=== PATIENT | male | born 1965 | race Caucasian/White ===

== ENCOUNTER 2022-09-29 13:50 | Outpatient (RCR) | payer MEDICARE, BC, SELFPAY ==
--- NOTE | 2022-09-29 14:32 | PTOPEVAL1 ---
Assessment and note entered by Shayne Hsu Evaluation Information Assessment Status Evaluation Diagnosis spinal stenosis, low back pain Onset 12/18/21 Subjective Information Pt. reports long hx of back pain. He had initial surgery in 2011. He was doing well until about 2019. He reports that he experienced fluctuating back pain from 2019 to December of 2021. He reports back pain became intense prior to surgery, but he is doing better. He reports that his main complication is difficulty with long periods of standing and increasing pain after 1 hour. 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 He report that back pain will wake him frequently through the night. He states that that pain remains localized to the low back and does not have any current symptoms into his legs. He reports that he has taken hydrocodone for several years 2-3x/day. He reports that his goal for therapy is to be able to spend 3-4 hours in standing to do work in his garage and enguage in more social activities with his . Reported Pain Level Pain Score 1: Self Report Assessment PT Clinical Summary Pt. is a 57 year old male who enters the clinic with low back pain. He presents with core and proximal l.e. weakness, impaired postural awareness, impaired flexiblity, and pain on this date. Continued skilled PT is indicated in order to improve these areas to allow the pt. improved comfort with standing activities. Plan of Care Interventions Electrical Stimulation,Hot Pack/Cold Pack,Manual Therapy,Patient/Caregiver Educati,Therapeutic Activities,Therapeutic Exercise,Self-Care/Home Management PT Services Indicated Yes Treatment Frequency and 3x/week x 12 visits Duration These treatments will address the objective and functional deficits as defined above. The patient will be advanced safely and appropriately in order for the patient to progress towards his/her prior level of function. Additional exercises will be introduced and as well as a comprehensive home exercise program upon discharge, if needed, ?to ensure carryover of functional gains achieved in the clinic. This treatment plan has been reviewed and agreement upon by the patient.
--- NOTE | 2022-09-29 14:38 | PTOPEVAL1 ---
Assessment and note entered by Shayne Hsu Evaluation Information Assessment Status Evaluation Diagnosis spinal stenosis, low back pain Onset 12/18/21 Subjective Information Pt. reports long hx of back pain. He had initial surgery in 2011. He was doing well until about 2019. He reports that he experienced fluctuating back pain from 2019 to December of 2021. He reports back pain became intense prior to surgery, but he is doing better. He reports that his main complication is difficulty with long periods of standing and increasing pain after 1 hour. 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 He report that back pain will wake him frequently through the night. He states that that pain remains localized to the low back and does not have any current symptoms into his legs. He reports that he has taken hydrocodone for several years 2-3x/day. He reports that his goal for therapy is to be able to spend 3-4 hours in standing to do work in his garage and enguage in more social activities with his . Reported Pain Level Pain Score 1: Self Report Assessment PT Clinical Summary Pt. is a 57 year old male who enters the clinic with low back pain. He presents with core and proximal l.e. weakness, impaired postural awareness, impaired flexiblity, and pain on this date. Continued skilled PT is indicated in order to improve these areas to allow the pt. improved comfort with standing activities. Plan of Care Interventions Electrical Stimulation,Hot Pack/Cold Pack,Manual Therapy,Patient/Caregiver Educati,Therapeutic Activities,Therapeutic Exercise,Self-Care/Home Management PT Services Indicated Yes Treatment Frequency and 3x/week x 12 visits Duration These treatments will address the objective and functional deficits as defined above. The patient will be advanced safely and appropriately in order for the patient to progress towards his/her prior level of function. Additional exercises will be introduced and as well as a comprehensive home exercise program upon discharge, if needed, ?to ensure carryover of functional gains achieved in the clinic. This treatment plan has been reviewed and agreement upon by the patient.
--- NOTE | 2022-10-28 16:51 | PTOPPROGNS ---
Assessment and note entered by So Vega DPT Evaluation Information Assessment Status Evaluation Diagnosis spinal stenosis, low back pain Onset 12/18/21 Subjective Information patient reports that he has noticed improvements since starting PT. He reports has been able to stand for longer periods of time and has had less pain when sleeping. He continues to report difficulty with bending over. Assessment PT Clinical Summary Patient has been seen for 10 visits from 09/29/22-. He has made good progress with improved functional tolerance with decrease in pain. 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 He would benefit from continued skilled PT to address remaining impairments and return to PLOF. Plan of Care Interventions Electrical Stimulation,Hot Pack/Cold Pack,Manual Therapy,Patient/Caregiver Educati,Therapeutic Activities,Therapeutic Exercise,Self-Care/Home Management PT Services Indicated Yes Treatment Frequency and continue with current POC Duration These treatments will address the objective and functional deficits as defined above. The patient will be advanced safely and appropriately in order for the patient to progress towards his/her prior level of function. Additional exercises will be introduced and as well as a comprehensive home exercise program upon discharge, if needed, ?to ensure carryover of functional gains achieved in the clinic. This treatment plan has been reviewed and agreement upon by the patient.
--- NOTE | 2022-11-12 15:27 | PTOPDC ---
Assessment and note entered by So Vega DPT Evaluation Information Assessment Status Evaluation Diagnosis spinal stenosis, low back pain Onset 12/18/21 Subjective Information Bree reports he has seen a lot of improvements since start of PT. He reports he has less frequent pain and less intense pain. He reports he is able to complete all house hold activities with out increase in pain. Reported Pain Level Pain Score 1: Self Report Assessment PT Clinical Summary Patient was seen for 12 visits of skilled PT and met all goals. Patient demonstrated improved strength, flexibility and ROM as well as reports improved activity tolerance and decreased pain. He is independent with HEP and is appropriate for DC at this time. Plan of Care PT Services Indicated No
== END 2022-11-12 16:13 | disposition home or self-care (01) ==
LOC: CHSPT 13:50
PROVIDERS: Visit Provider Orthopaedic Surgery Orthopaedic Surgery of the Spine
DX: M48.061 Spinal stenosis, lumbar region without neurogenic claudication (principal)
CPT/HCPCS: 97014; 97110; 97112; 97161; G0283

== ENCOUNTER 2024-01-13 15:29 | Outpatient (RCR) | payer MEDICARE, BC, SELFPAY ==
--- NOTE | 2024-01-13 16:33 | OPREHPOC ---
Outpatient Therapy Plan of Care This is a Multidisciplinary Plan of Care that may contain components documented by all disciplines (PT, OT, and ST.) PT Problem 1 PT Problem #1 Knowledge Deficit PT Goal 1 Goal 1. independent and compliant with HEP Target Visit 6 PT Problem 2 PT Problem #2 Pain PT Goal 1 Goal 1. decrease pain at worst to 2/10 or less in the lower back and L hip. Target Visit 12 PT Problem 3 PT Problem #3 Impaired Strength PT Goal 1 Goal 1. improve bilateral hip strength to 4+/5 or better overall 2. improve L hamstrings strength to 5/5 3. patient to hold bridge without posture loss for 1 minute or more Target Visit 12 PT Problem 4 PT Problem #4 Impaired Functional Mobil PT Goal 1 Goal 1. LEFS to display 15% or less functional deficits 2. patient to ambulate 1 mile or more in the community without symptoms 3. patient to ambulate up and down 2 flights of steps without increased pain 4. patient to stand for 1 hour or more without pain Target Visit 12
--- NOTE | 2024-01-13 16:33 | PTOPEVAL1 ---
Assessment and note entered by JT File, PT Evaluation Information Assessment Status Evaluation Diagnosis L hip trochanteric bursitis Onset 11/18/23 Subjective Information patient reports his L hip has been bothering him since the beginning of November, but reports the past few days it has settled down. he did have back surgery back in April of 2022. he reports he has done well since then, but every so often has a flare up in the lower back. he reports as far as the L hip pain goes, he has had trouble laying down at night, and does not tolerate laying on the L side. he reports walking increased time/ distance does increase his pain (1 mile reported as quite a bit difficult on LEFS). he reports the pain does go down the side of the L LE to the knee at times. Reported Pain Level Pain Score 1: Self Report Assessment PT Clinical Summary mr. christina is a 58 yo man who presents to skilled PT services for evaluation and treatment of L lateral hip pain. he complains of pain in the L lateral hip that does radiate down the L LE at times. she is tender to palpation along the L glutes and L greater trochanter. he presents with L hip weakness and L hamstrings weakness. his symptoms likely are related to L lumbar radiculopathy/sciatica. continued skilled PT is indicated to improve his objective/functional deficits and progress towards a return to his prior level functional activity performance/ quality of life. Plan of Care Interventions Electrical Stimulation,Gait Training,Hot Pack/Cold Pack,Manual Therapy,Neuro Re-education, Therapeutic Activities,Therapeutic Exercise PT Services Indicated Yes Treatment Frequency and 3x weekly for 12 visits Duration These treatments will address the objective and functional deficits as defined above. The patient will be advanced safely and appropriately in order for the patient to progress towards his/her prior level of function. Additional exercises will be introduced and as well as a comprehensive home exercise program upon discharge, if needed, ?to ensure carryover of functional gains achieved in the clinic. This treatment plan has been reviewed and agreement upon by the patient.
--- NOTE | 2024-02-08 13:04 | PCPTNOTE ---
Patient cancelled session due to illness.
--- NOTE | 2024-02-10 15:05 | PCPTNOTE ---
pt cancelled due to feeling ill.
--- NOTE | 2024-02-17 17:17 | OPREHPOC ---
Outpatient Therapy Plan of Care This is a Multidisciplinary Plan of Care that may contain components documented by all disciplines (PT, OT, and ST.) PT Problem 1 PT Problem #1 Knowledge Deficit PT Goal 1 Goal 1. independent and compliant with HEP Target Visit 6 Progress Partially Met Comment continue PT Problem 2 PT Problem #2 Pain PT Goal 1 Goal 1. decrease pain at worst to 2/10 or less in the lower back and L hip. Target Visit 12 Progress Not Met Comment continue PT Problem 3 PT Problem #3 Impaired Strength PT Goal 1 Goal 1. improve bilateral hip strength to 4+/5 or better overall 2. improve L hamstrings strength to 5/5 3. patient to hold bridge without posture loss for 1 minute or more Target Visit 12 Progress Partially Met Comment continue PT Problem 4 PT Problem #4 Impaired Functional Mobil PT Goal 1 Goal 1. LEFS to display 15% or less functional deficits 2. patient to ambulate 1 mile or more in the community without symptoms 3. patient to ambulate up and down 2 flights of steps without increased pain 4. patient to stand for 1 hour or more without pain Target Visit 12 Progress Not Met Comment continue
--- NOTE | 2024-02-17 17:17 | PTOPPROG ---
Assessment and note entered by Ketty Rogers, PT Evaluation Information Assessment Status Progress Diagnosis L hip trochanteric bursitis ICD-10 Condition Codes (PT) Pain in left hip M25.552 Onset 11/18/23 Subjective Information Bree Fishman reports his left hip/back is getting better overall but he continues to have intermittent pain depending on his activity level. He feels he has ongoing pain when he is overactive working in his garage or in the yard. He notes pain seems to be worse in the morning when he has slept heavy and not moved a lot. He does note less pain after stretching. Assessment PT Clinical Summary Bree Fishman has completed 9 skilled PT visits for left hip and lower back pain. He is reporting overall improvements but still has intermittent pain limiting his ability to work in his garage and yard. He feels PT is helping though. He is progressing toward his goals well but has not met them yet. He will continue to benefit from skilled PT to improve pain, lumbar ROM, core and hip strength, and functional abilities. Plan of Care Interventions Electrical Stimulation,Hot Pack/Cold Pack,Manual Therapy,Patient/Caregiver Educati,Therapeutic Exercise PT Services Indicated Yes Treatment Frequency and Continue skilled PT per original POC Duration These treatments will address the objective and functional deficits as defined above. The patient will be advanced safely and appropriately in order for the patient to progress towards his/her prior level of function. Additional exercises will be introduced and as well as a comprehensive home exercise program upon discharge, if needed, ?to ensure carryover of functional gains achieved in the clinic. This treatment plan has been reviewed and agreement upon by the patient.
== END 2024-03-02 16:54 | disposition home or self-care (01) ==
LOC: CHSPT 15:29
PROVIDERS: Visit Provider Family Medicine
DX: M70.62 Trochanteric bursitis, left hip (principal)
CPT/HCPCS: 97014; 97110; 97140; 97161; 97530; G0283